=== PATIENT | female | born 1970 | race African-American/Black ===

== ENCOUNTER 2018-11-22 13:56 | Inpatient (IN) ==
[2018-11-22] MEDS ORDERED: ZOFRAN IV ONE (14:37)
[2018-11-22] MEDS ORDERED: MORPHINE IV ONE ×2 (14:37→17:49)
--- NOTE | 2018-11-22 15:09 | PROVIDER DOCUMENTATION ---
HPI-Chest Pain - General Chief Complaint: Breast Pain Stated Complaint: LT BREAST PAIN/TINGLING IN HAND Time Seen by Provider: 11/22/18 14:08 Source: patient Allergies/Adverse Reactions: Patient Allergies Allergy/AdvReac Type Severity Reaction Status Date / Time No Known Allergies Allergy Verified 11/22/18 15:09 Home Medications: Home Medication List Medication Instructions Recorded Confirmed Last Taken Type Esomeprazole [Nexium] 40 mg PO DAILY 05/18/14 11/22/18 05/17/14 History Promethazine [Phenergan] 25 mg PO Q6H PRN PRN #20 tablet 03/09/17 11/22/18 Unknown Rx Clonazepam 2 mg PO BID 06/07/18 11/22/18 Unknown History Erenumab-Aooe [Aimovig 1 dose IM DIRECTED 06/07/18 11/22/18 Unknown History Autoinjector] Hydrocodone/Acetaminophen 1 tab PO BID PRN 06/07/18 11/22/18 Unknown History [Hydrocodone-Acetamin 10-325 mg] Meloxicam 15 mg PO DAILY 06/07/18 11/22/18 Unknown History Norethindrone-E.estradiol-Iron 1 mg PO DAILY 06/07/18 11/22/18 Unknown History [Blisovi 24 Fe Tablet] Tizanidine HCl 4 mg PO BID 06/07/18 11/22/18 Unknown History Rosuvastatin Calcium 1 tab PO DAILY 11/22/18 11/22/18 Unknown History - History of Present Illness-CP Nature of Presenting Problem: Patient is a 48 yobf who complains of pain to right breast area and right side of chest since last night that worsened today. The pain is exacerbated by movement and deep inspiration. She has had some non-productive cough as well. Denies n/v, fever, diaphoresis, or any other complaints. Denies recent chest wall injury. States she is not short of breath but that she is taking shallow breaths due to pain with inspiration. She is non-toxic in appearance. Review of Systems - Adult - REVIEW OF SYSTEMS - ADULT Constitutional: reports: no symptoms reported. denies: chills, fever Eyes: reports: no symptoms reported Ears, Nose, Mouth & Throat: reports: no symptoms reported Cardiovascular: reports: see HPI, chest pain. denies: edema, orthopnea, palpitations, PND, syncope Respiratory: reports: see HPI. denies: excessive sputum production, hemoptysis, wheezing Gastrointestinal: reports: no symptoms reported. denies: nausea, vomiting Genitourinary: reports: no symptoms reported Musculoskeletal: reports: no symptoms reported Integumentary: reports: no symptoms reported Neurological: reports: no symptoms reported Psychiatric: reports: no symptoms reported Endocrine: reports: no symptoms reported Hematologic/Lymphatic: reports: no symptoms reported Allergic/Immunologic: reports: no symptoms reported All Other Systems: Reviewed and Negative Past History - Adult - PAST MEDICAL HISTORY-ADULT Review of Records: reports: Nursing Assessment Review, Medications Reviewed, Social history reviewed & non-contributory. Major Childhood Illnesses: reports: denies history Cardiovascular: reports: hyperlipidemia Respiratory: reports: denies history Gastrointestinal: reports: denies history Obstetrical/Gynecological: reports: denies history Genitourinary: reports: denies history Musculoskeletal: reports: chronic pain, fibromyalgia Neurological: reports: headaches/migraines Psychiatric: reports: depression Endocrine/Immune: reports: denies history Other Conditions: reports: denies history - PRIOR SURGERIES/PROCEDURES Surgical/Procedure History: reports: , hernia repair - IMMUNIZATION STATUS Childhood Immunizations: See Nurse Assessment Flu Vaccine: See Nurse Assessment - FAMILY HISTORY Family History: reviewed, not pertinent, HTN, other (father and sister: DM, HTN.) - SOCIAL HISTORY Smoking: non-smoker Physical Exam-General - PHYSICAL EXAM-ADULT Initial Vital Signs Reviewed: Yes - CONSTITUTIONAL General Appearance: alert, mild distress. negative: lethargic, slow to respond - EYES Eyes: PERRL/EOMI, pink conjunctivae - HEAD, EARS, NOSE, MOUTH & THROAT HENMT: normocephalic/atraumatic, moist mucous membranes, normal ENT inspection, pharynx normal - NECK Neck: full range of motion, supple, normal inspection - RESPIRATORY Respiratory: lungs clear, normal breath sounds, no respiratory distress, no accessory muscle use, splinting (right breast area), other (right chest wall and rib region tender to palpation). negative: crackles, stridor, wheezing, crepitus - CARDIOVASCULAR Cardiovascular: normal peripheral pulses, regular rate, rhythm, no edema, no gallop, no JVD, no murmur - GASTROINTESTINAL (ABDOMEN) Abdominal Exam: normal bowel sounds, non tender, soft - MUSCULOSKELETAL Back Exam: normal inspection Extremity: normal range of motion, non-tender, normal inspection - SKIN Integumentary: normal color, warm/dry. negative: cyanosis, diaphoresis, jaundice, mottled, pallor - NEUROLOGIC Neurologic: grossly normal, no motor/sensory deficits - PSYCHIATRIC Psych/Mental Status: normal mood/affect, normal thought content, normal thought process, oriented x 3 - HEART Score HEART Score: History: Slightly Suspicious HEART Score: ECG: Normal HEART Score: Age: 45-65 Years HEART Score: Risk Factors for Atherosclerotic Disease: 1 or 2 Risk Factors HEART Score: Troponin: < or = Normal Limit Total HEART Score:: 2 Progress - PLAN OF CARE/RESULTS Progress/Plan/Lab Results: Vital Signs - 8 hr 11/22/18 14:01 11/22/18 16:03 Temperature 98.5 F Pulse Rate 98 H 85 Respiratory Rate 18 22 Blood Pressure 110/65 133/83 O2 Sat by Pulse Oximetry 96 96 Bedside Urine ED: Urine Bedside Start: 11/22/18 14:39 Freq: ORDERED Status: Active Protocol: Activity Type Activity Date Activity User E-Sign Co-Sign Detail Recorded Client Recorded Date Recorded By Document 11/22/18 15:00 [id number] 11/22/18 15:00 [id number] 11/22/18 15:00 Point of Care [Bedside Point of Care] -Lot # [id number] - Results Negative -Control Line Visible? Yes Laboratory Results - last 24 hr 11/22/18 11/22/18 11/22/18 14:45 14:45 14:45 WBC 12.86 H RBC 4.34 Hgb 13.1 Hct 40.4 MCV 93.1 MCH 30.2 MCHC 32.4 L RDW Std Deviation 13.3 Plt Count 290 MPV 10.5 H Immature Gran % (Auto) 0.3 Neut % (Auto) 65.6 Lymph % (Auto) 27.1 [place] % (Auto) 5.1 Eos % (Auto) 1.7 Baso % (Auto) 0.2 Immature Gran # (Auto) 0.04 Neut # (Auto) 8.43 H Lymph # (Auto) 3.48 H [place] # (Auto) 0.66 H Eos # (Auto) 0.22 Baso # (Auto) 0.03 PT INR PTT (Actin FS) D-Dimer, Quantitative 1.00 H Sodium Potassium Chloride Carbon Dioxide Anion Gap BUN Creatinine Estimated GFR/1.73 m2 BUN/Creatinine Ratio Glucose Calculated Osmolality Calcium Magnesium Total Bilirubin AST ALT Alkaline Phosphatase Troponin T < 0.010 Une-U-Kyvhawyowei Pept Total Protein Albumin Globulin Albumin/Globulin Ratio 11/22/18 11/22/18 11/22/18 14:45 14:45 14:45 WBC RBC Hgb Hct MCV MCH MCHC RDW Std Deviation Plt Count MPV Immature Gran % (Auto) Neut % (Auto) Lymph % (Auto) [place] % (Auto) Eos % (Auto) Baso % (Auto) Immature Gran # (Auto) Neut # (Auto) Lymph # (Auto) [place] # (Auto) Eos # (Auto) Baso # (Auto) PT 13.1 INR 0.94 PTT (Actin FS) 28.1 D-Dimer, Quantitative Sodium 138 Potassium 3.6 Chloride 102 Carbon Dioxide 24 L Anion Gap 13 BUN 9 Creatinine 0.8 Estimated GFR/1.73 m2 > 60 BUN/Creatinine Ratio 11 Glucose 138 H Calculated Osmolality 277 Calcium 8.9 Magnesium 1.9 Total Bilirubin 0.50 AST 10 ALT 7 L Alkaline Phosphatase 48 Troponin T Xgr-G-Nzqeiavuopn Pept < 5 L Total Protein 7.9 Albumin 4.4 Globulin 4.0 Albumin/Globulin Ratio 1.0 Orders Category Date Time Status Cardiac Monitoring DIRECTED Care 11/22/18 14:37 Active ED: Urine Bedside ORDERED Care 11/22/18 14:39 Active Saline Loc NOW Care 11/22/18 14:37 Active CHEST-2 VIEWS [RAD] Stat Exams 11/22/18 14:[address] ANGIOGRM PULMONARY ARTERIES [CT] Stat Exams 11/22/18 15:52 Taken CBC WITH DIFF [HEME] Stat Lab 11/22/18 14:45 Completed COMPREHENSIVE METABOLIC PANEL [CHEM] Stat Lab 11/22/18 14:45 Completed D-DIMER [COAG] Stat Lab 11/22/18 14:45 Completed MAGNESIUM [CHEM] Stat Lab 11/22/18 14:45 Completed PRO B-NATRIURETIC PEPTIDE Stat Lab 11/22/18 14:45 Completed PROTIME WITH INR [COAG] Stat Lab 11/22/18 14:45 Completed PTT [COAG] Stat Lab 11/22/18 14:45 Completed TROPONIN T Stat Lab 11/22/18 14:45 Completed 0.9% Sodium Chloride Inj [Ns] 500 ml Med 11/22/18 15:52 Discontinued IV 999 mls/hr Acetaminophen [Tylenol] Med 11/22/18 16:08 Discontinued 650 mg PO NOW ONE Morphine Med 11/22/18 14:37 Discontinued 4 mg IV NOW ONE Ondansetron [Zofran] Med 11/22/18 14:37 Discontinued 4 mg IV NOW ONE EKG [EKG] Stat Ther 11/22/18 14:37 Ordered Result Diagrams: 11/22/18 14:45 11/22/18 14:45 - REASSESSMENT Reassessment #1 Time Reassessed: 17:03 Status: other (Spoke with Dr. Camacho who called report for CTA- md states several pulmonary emboli noted in right lung.) - EKG 1 Time of EKG reading by physician:: 14:40 EKG Read and Signed by:: Janett Jacinto EKG Interpretation (*Must complete 3 of following elements*): Normal Rate: 89 Rhythm: SR QRS: normal ST Wave: normal - XRAY 1 XRAY Study: Chest ([facility] - [address] [facility] [address] [address] [facility] - [address] [place] [address] Department of Imaging Patient: ALISSA GRANDEADM Date: 11/22/18#: [id number] : 1970ADM Status: REG [facility]#: [id number] Age/Sex: 48/FRoom/Bed: Loc: P.ED Ordering Physician: Alvina Cotton Family Physician: Stefan Guy DO Reason for Procedure: cp- right chest Signed CHEST-2 VIEWS - 11/22/2018 INDICATION: cp- right chest COMPARISON: 05/18/2014 FINDINGS: There is some trace atelectasis in the lateral costophrenic angles bilaterally. No significant infiltrates. Heart size and pulmonary vascularity is normal. No pneumothorax or pleural effusion. IMPRESSION: Trace hazy atelectasis in the costophrenic angles. Electronically signed by Steve Galan 11/22/2018 4:17 PM 11/22/18 1617 Interpreting Physician: Steve Galan MD Dictated Date/Time: 11/22/18 1616 cc: Giovana Cotton; Stefan Guy DO) - CONSULTS/PCP/HOSPITALIST Notification #1 *Consult/PCP/Hospitalist*: Dr Roe Time Discussed: 17:28 Reason/Comments: PE Consult Disposition: Admit - CHANGE OF SHIFT REPORT (ED Provider) 1 Report Given and Care Transferred to:: JABARI Chan Time of Transfer: 16:58 Items Pending: CT/MRI Results Departure - Departure Date of Disposition Decision: 11/22/18 Time of Disposition Decision: 17:28 DIAGNOSIS: Pulmonary embolism Qualifiers: Pulmonary embolism type: other Chronicity: acute Disposition: ADMITTED INPATIENT 09 Certified Medical Emergency: Emergent Condition: Critical Additional Freetext Instructions: ED Follow Up Instructions: You have been treated by a care provider in the Emergency Department. These instructions are being provided to you so you can have an understanding of how to care for yourself upon discharge. Upon discharge from the Emergency Department, you are responsible for making arrangements for follow-up care by a physician of your choice. Take all prescribed medications as directed. Return to the Emergency Department immediately for any new or worsening symptoms. You may call the Physician Referral phone number at [phone] to obtain a list of Physicians who are taking new patients. Referrals and Follow-Ups: Stefan Guy DO [Primary Care Provider] - - Critical Care Note This patient required my direct & personal management of CC.: No Attestation - Physician/ ALPHONSE Attestation Patient care was provided by Advanced Practice Provider:: Yes Advanced Practice Provider:: Giovana Cotton Advanced Practice Provider documentation review:: The Mid-level provider documentation, treatment plan and medical decision making was reviewed by the physician who agrees with all treatment and medical decision making by the [facility]. The physician spent face to face time with patient:: No Advanced Practice Provider documentation review:: Supervising physician onsite and consulted in the evaluation and care of this patient. The physician did not have a face to face encounter with the patient.
[2018-11-22 15:13] LABS: BASO# 0.03 X1000 (0.0-0.2); BASO% 0.2 % (0.0-0.8); EOS# 0.22 X1000 (0.0-0.7); EOS% 1.7 % (0.0-10.0); HEMATOCRIT 40.4 % (37.0-47.0); HEMOGLOBIN 13.1 g/dL (12.0-16.0); IMM GRAN# 0.04 X1000 (0.0-0.04); IMM GRAN% 0.3 % (0.0-0.5); LYMPH# 3.48 X1000 (1.2-3.4); LYMPH% 27.1 % (20.5-51.1); MCH 30.2 PG (27-31); MCHC 32.4 g/dL (33-37); MCV 93.1 FL (81-99); MONO# 0.66 X1000 (0.11-0.59); MONO% 5.1 % (1.7-9.3); MPV 10.5 FL (7.4-10.4); NEUT# 8.43 X1000 (1.4-6.5); NEUT% 65.6 % (42.2-75.2); PLT 290 X1000 (130-400); RBC 4.34 XMIL (4.2-5.4); RDW 13.3 % (11.5-14.5); WBC 12.86 X1000 (4.8-10.8)
[2018-11-22 15:30] LABS: AGAP 13; ALBUMIN 4.4 g/dL (3.5-5.0); ALKALINE PHOSPHATASE 48 U/L (32-104); BUN 9 mg/dL (8-22); CALCIUM 8.9 mg/dL (8.8-10.2); CHLORIDE 102 mmol/L (98-107); COSMO 277; CREATININE 0.8 mg/dL (0.5-0.9); ESTIMATED GFR > 60; GLUCOSE 138 mg/dL (70-104); GOT 10 U/L (10-30); GPT 7 U/L (10-36); MAGNESIUM 1.9 mg/dL (1.5-2.7); POTASSIUM 3.6 mmol/L (3.5-5.1); SODIUM 138 mmol/L (136-145); TCO2 24 mmol/L (25-35); TOTAL PROTEIN 7.9 g/dL (6.3-8.3)
[2018-11-22] MEDS ORDERED: NS 500 ML IV ONE (15:52)
[2018-11-22] MEDS ORDERED: TYLENOL PO ONE (16:08)
--- NOTE | 2018-11-22 16:19 | Diag Imaging Result Doc PS360 ---
CHEST-2 VIEWS - 11/22/2018 INDICATION: cp- right chest COMPARISON: 05/18/2014 FINDINGS: There is some trace atelectasis in the lateral costophrenic angles bilaterally. No significant infiltrates. Heart size and pulmonary vascularity is normal. No pneumothorax or pleural effusion. IMPRESSION: Trace hazy atelectasis in the costophrenic angles. Electronically signed by Steve Galan 11/22/2018 4:17 PM
[2018-11-22 16:20] LABS: INR 0.94; PROTIME 13.1 Seconds (11.0-16.0)
[2018-11-22 16:21] LABS: PTT 28.1 Seconds (22.3-41.8)
[2018-11-22] MEDS ORDERED: LOVENOX SUBQ ONE (17:03)
--- NOTE | 2018-11-22 17:05 | Diag Imaging Result Doc PS360 ---
CT ANGIOGRM PULMONARY ARTERIES - 11/22/2018 INDICATION: right chest pain, elevated d-dimer TECHNIQUE: Axial CT images were obtained after administering intravenous contrast. Coronal MIP images were generated. COMPARISON: None FINDINGS: There are a couple of pulmonary emboli in the segmental arteries of the right middle and lower lobes. Heart size is normal with no pericardial effusion. There are several left renal cysts. Otherwise upper abdomen appears normal. There is some mild hazy atelectasis in the lung bases. Otherwise no infiltrates. Airways are clear. Bony structures are intact. IMPRESSION: Multiple segmental pulmonary artery emboli mainly in the right lung. This report was discussed with Kavita Cotton on 11/22/2018 at 5:00 PM and was readback. This exam was performed using automated exposure control, adjustment of mA or kV according to patient size, and/or use of iterative reconstruction technique Electronically signed by Steve Galan 11/22/2018 5:02 PM
--- NOTE | 2018-11-22 17:14 | EKG Report ---
Test Performed on : 11/22/2018 2:38:03 PM Test Reason : cp Blood Pressure : / mmHG Vent. Rate : 089 BPM Atrial Rate : 089 BPM P-R Int : 140 ms QRS Dur : 072 ms QT Int : 336 ms P-R-T Axes : 032 001 007 degrees QTc Int : 408 ms Normal sinus rhythm. Normal ECG When compared with ECG of 07-JUN-2018 11:31, No significant change was found Unconfirmed Result
[2018-11-22] MEDS ORDERED: ZOFRAN IV PRN (20:50)
[2018-11-22] MEDS ORDERED: KLONOPIN PO SCH (21:00)
[2018-11-22] MEDS: LOVENOX SUBQ SCH (21:42)
[2018-11-22] MEDS: NS 1,000 ML IV SCH (21:43)
[2018-11-22] MEDS: MORPHINE IV PRN (21:43)
[2018-11-23] MEDS: MORPHINE IV PRN ×3 (01:39→20:57)
[2018-11-23] MEDS: NS 1,000 ML IV SCH (06:24)
[2018-11-23] MEDS: PRILOSEC PO SCH (06:24)
[2018-11-23 06:40] LABS: BASO# 0.02 X1000 (0.0-0.2); BASO% 0.2 % (0.0-0.8); EOS# 0.21 X1000 (0.0-0.7); EOS% 1.8 % (0.0-10.0); HEMATOCRIT 37.7 % (37.0-47.0); HEMOGLOBIN 11.8 g/dL (12.0-16.0); IMM GRAN# 0.03 X1000 (0.0-0.04); IMM GRAN% 0.3 % (0.0-0.5); LYMPH# 3.64 X1000 (1.2-3.4); MCH 29.7 PG (27-31); MCHC 31.3 g/dL (33-37); MONO# 0.98 X1000 (0.11-0.59); MONO% 8.6 % (1.7-9.3); MPV 10.2 FL (7.4-10.4); NEUT# 6.51 X1000 (1.4-6.5); NEUT% 57.1 % (42.2-75.2); PLT 283 X1000 (130-400); RBC 3.97 XMIL (4.2-5.4); RDW 13.5 % (11.5-14.5); WBC 11.39 X1000 (4.8-10.8)
[2018-11-23 06:58] LABS: AGAP 8; BUN 8 mg/dL (8-22); CALCIUM 8.1 mg/dL (8.8-10.2); CHLORIDE 108 mmol/L (98-107); COSMO 280; CREATININE 0.8 mg/dL (0.5-0.9); ESTIMATED GFR > 60; GLUCOSE 105 mg/dL (70-104); POTASSIUM 3.8 mmol/L (3.5-5.1); SODIUM 141 mmol/L (136-145); TCO2 25 mmol/L (25-35)
[2018-11-23] MEDS: TYLENOL PO PRN (08:10)
[2018-11-23] MEDS: KLONOPIN PO SCH ×2 (08:10→20:58)
[2018-11-23] MEDS: LOVENOX SUBQ SCH ×2 (08:11→20:57)
--- NOTE | 2018-11-23 09:06 | HISTORY AND PHYSICAL ---
PRIMARY CARE PHYSICIAN: Dr. Stefan Guy. CHIEF COMPLAINT: Pain over the right side of her breast and chest that began Friday night, worse with movement and deep inspiration, and these symptoms progressively worsened. HISTORY OF PRESENTING ILLNESS: This is a 48-year-old, female who presents to [facility] ER with complaints of pain over her right breast and chest wall that began Friday night and progressively worsened. States the pain is worse with movement and deep inspiration. She had also had a nonproductive cough. Denies any recent chest wall injury. Denied being short of breath but states that she is taking shallow breaths due to the pain with inspiration. Her laboratory data showed a D-dimer of 1.00. We did a pulmonary arteriogram that showed multiple segmental pulmonary artery emboli, mainly in the right lung, so she was admitted for further evaluation and treatment. PAST MEDICAL HISTORY: Hyperlipidemia, chronic pain, fibromyalgia, headache, and depression. PAST SURGICAL HISTORY: section and hernia repair. FAMILY HISTORY: Father and sister both had diabetes and hypertension. SOCIAL HISTORY: She currently lives with family. Denies any tobacco, alcohol, or illicit drug use. ALLERGIES: She has no known drug allergies. HOME MEDICATIONS: We will hold Aimovig IM as directed, hydrocodone 10 one p.o. b.i.d. p.r.n., meloxicam 15 mg p.o. daily, Blisovi 24 iron tablet 1 mg p.o. daily, Phenergan 25 mg p.o. q.6 hours p.r.n., tizanidine 4 mg p.o. b.i.d. We will continue her clonazepam 2 mg p.o. b.i.d., Nexium 40 mg p.o. daily, and rosuvastatin 40 mg p.o. daily. LABORATORY DATA: Showed a white blood cell count of 12.86, hemoglobin 13.1, hematocrit 40.4, platelets 290,000. PT and INR of 13.1 and 0.94, with a D-dimer of 1. Sodium 138, potassium 3.6, chloride 102, CO2 of 24, BUN of 9, creatinine 0.8, glucose 138, magnesium 1.9. Troponin less than 0.010. ProBNP less than 5. Chest x-ray showed trace hazy atelectasis in the costophrenic angles. EKG showed normal sinus rhythm at 89. Pulmonary arteriogram showed multiple segmental pulmonary artery emboli, mainly in the right lung. REVIEW OF SYSTEMS: She denied any fever, chills, blurred vision, dizziness. She had right-sided chest pain, chest wall pain, and right breast pain, a nonproductive cough. Denied shortness of breath. Denied any abdominal pain, constipation, diarrhea, burning or hurting with urination. PHYSICAL EXAMINATION: VITAL SIGNS: On arrival, she had a temperature of 98.5 degrees, pulse 98, respirations 18, blood pressure 110/65, saturating 96% on room air. GENERAL: This is a 48-year-old, female who is lying in the bed and answers questions appropriately. HEENT: Normocephalic, atraumatic. Normal ENT inspection. Oropharynx and nares are clear. Eyes: Pupils are equal, round, and reactive to light and accommodation. Extraocular movements are intact. NECK: Normal inspection. Normal range of motion. LUNGS: Clear to auscultation bilaterally, with equal lung expansion and chest wall movement. HEART: Regular rate and rhythm. No murmurs, rubs, or gallops. ABDOMEN: Soft, nontender, nondistended. Bowel sounds are present x4 quadrants. MUSCULOSKELETAL: She has 5/5 strength x4 extremities. NEUROLOGICAL: The cranial nerves 2-12 appear grossly intact. ASSESSMENT: 1. Right pulmonary emboli. 2. Elevated D-dimer. 3. Chronic pain. 4. Hyperlipidemia. PLAN: She was admitted to the medical unit, placed on a regular diet. We are going to check a bilateral lower extremity venous Doppler, do her hypercoagulable workup. She was placed on Lovenox 90 mg subcutaneously q.12 hours, normal saline at 100 mL an hour but I believe we can discontinue that at this time. We will attempt to transition her to Xarelto. We will make sure she can afford this medication prior to changing her over. Dictated by JABARI Echeverria for Pancho Rodriguez MD cc: JABARI Echeverria MD [facility], DO [facility]
--- NOTE | 2018-11-23 09:50 | Extremity Venous Study ---
EXAM: Venous U/S Bilateral Legs HISTORY: Pulmonary Embolism TECHNIQUE: Shepherd scale, color Doppler, and duplex evaluation was performed. Standard protocol. COMPARISON: None. FINDINGS: There is a nonocclusive acute thrombus within the right common femoral vein. The remainder of the bilateral deep veins are patent.. The superficial veins appear patent. IMPRESSION: Nonocclusive acute DVT right common femoral vein. No evidence for deep venous thrombosis left lower extremity. Electronically signed by Gloria Cowan 11/23/2018 9:47 AM
[2018-11-23] MEDS: CRESTOR PO SCH ×2 (19:52→20:58)
--- NOTE | 2018-11-24 06:46 | HISTORY AND PHYSICAL ---
ADDENDUM: The patient was seen and examined by myself. Full note was dictated and discussed with nurse practitioner. The patient presented to the hospital with right-sided chest pain. It hurts worse when she breathes or moves. Upon evaluation, she was noted to have pulmonary emboli. It appears we are going to admit her to the hospital. Check an ultrasound of her lower extremities. Place her on Lovenox and hopefully transition to Xarelto or Eliquis. cc: Pancho Rodriguez MD
[2018-11-24] MEDS: LOVENOX SUBQ SCH (09:06)
[2018-11-24] MEDS: PRILOSEC PO SCH (09:07)
[2018-11-24] MEDS: KLONOPIN PO SCH ×2 (09:07→21:42)
[2018-11-24] MEDS: TYLENOL PO PRN (14:06)
--- NOTE | 2018-11-24 17:55 | PROGRESS NOTE ---
DATE: 11/24/2018 SUBJECTIVE: Patient has no major complaints. OBJECTIVE: Vital Signs: Blood pressure is 117/66, heart rate of 70, respiratory rate of 18, temperature 97.7 degrees, 100% on 1 L. Cardiovascular: Regular rate and rhythm. Pulmonary: Bilateral breath sounds, clear to auscultation. Gastrointestinal: Soft, nontender, nondistended. Bowel sounds are positive. DIAGNOSTIC DATA: White count 11, hemoglobin and hematocrit of 11 and 37, platelets 283,000. Basic was normal. PROBLEM LIST: Right PE. These are very small PEs. We will continue anticoagulation. I switched her to Eliquis. I did not see his note here about switching her to Xarelto, but I have assumed care, and they are pretty equivocal. I am just going to do Eliquis. We will get social work to approve the medication. Hypercoagulable workup is in place. We will continue to follow closely. Clinically, I think she is doing okay, and these are very small PEs. We will work on trying to get her up and about. cc: Brent Posada MD
[2018-11-24] MEDS: CRESTOR PO SCH (21:41)
[2018-11-24] MEDS: ELIQUIS PO SCH (21:42)
[2018-11-24] MEDS: MORPHINE IV PRN (21:57)
[2018-11-25] MEDS: PRILOSEC PO SCH ×2 (05:33→06:01)
[2018-11-25 07:44] LABS: BASO# 0.02 X1000 (0.0-0.2); BASO% 0.2 % (0.0-0.8); EOS# 0.24 X1000 (0.0-0.7); EOS% 2.6 % (0.0-10.0); HEMATOCRIT 39.6 % (37.0-47.0); HEMOGLOBIN 12.2 g/dL (12.0-16.0); IMM GRAN# 0.01 X1000 (0.0-0.04); IMM GRAN% 0.1 % (0.0-0.5); LYMPH# 3.39 X1000 (1.2-3.4); LYMPH% 36.3 % (20.5-51.1); MCH 29.5 PG (27-31); MCHC 30.8 g/dL (33-37); MCV 95.7 FL (81-99); MONO# 0.71 X1000 (0.11-0.59); MONO% 7.6 % (1.7-9.3); MPV 10.7 FL (7.4-10.4); NEUT# 4.98 X1000 (1.4-6.5); NEUT% 53.2 % (42.2-75.2); PLT 272 X1000 (130-400); RBC 4.14 XMIL (4.2-5.4); WBC 9.35 X1000 (4.8-10.8)
[2018-11-25] MEDS: ELIQUIS PO SCH ×3 (07:55→20:42)
[2018-11-25] MEDS: KLONOPIN PO SCH ×3 (07:55→20:42)
[2018-11-25 07:58] LABS: AGAP 10; BUN 7 mg/dL (8-22); CALCIUM 8.6 mg/dL (8.8-10.2); CHLORIDE 106 mmol/L (98-107); COSMO 282; CREATININE 0.7 mg/dL (0.5-0.9); ESTIMATED GFR > 60; GLUCOSE 110 mg/dL (70-104); SODIUM 142 mmol/L (136-145); TCO2 26 mmol/L (25-35)
[2018-11-25] MEDS: CRESTOR PO SCH (20:41)
[2018-11-25] MEDS: TYLENOL PO PRN (22:46)
[2018-11-26] MEDS: PRILOSEC PO SCH (06:46)
[2018-11-26] MEDS: MORPHINE IV PRN (06:47)
[2018-11-26 07:48] VITALS: BP 127/74
--- NOTE | 2018-11-26 08:11 | Diag Imaging Result Doc PS360 ---
EXAM: CHEST-2 VIEWS - 11/26/2018 HISTORY: hypoxia TECHNIQUE: Chest two views COMPARISON: 11/22/2018 FINDINGS: Heart size is normal. There is mild elevation of left hemidiaphragm, with mild subsegmental atelectasis at the left base, similar to prior. The lungs otherwise appear clear. There is no pleural effusion or pneumothorax identified. IMPRESSION: Stable mild elevation of left hemidiaphragm with mild subsegmental atelectasis at the left base. No acute changes. Electronically signed by Alhaji Tolbert 11/26/2018 8:08 AM
[2018-11-26] MEDS: KLONOPIN PO SCH (09:30)
[2018-11-26] MEDS: ELIQUIS PO SCH (09:30)
--- NOTE | 2018-11-27 05:08 | DISCHARGE SUMMARY ---
ADMISSION DATE: 11/22/2018 DISCHARGE DATE: 11/26/2018 PRIMARY CARE PHYSICIAN: Dr. Stefan Guy. ADMISSION DIAGNOSES: 1. Right pulmonary emboli. 2. Elevated D-dimer. 3. Chronic pain. 4. Hyperlipidemia. DISCHARGE DIAGNOSES: 1. Right pulmonary emboli and right lower extremity deep venous thrombosis of the common femoral vein. 2. Chronic pain. 3. Hyperlipidemia. SUMMARY OF FINDINGS: This is a 48-year-old female who presented to the ER with complaints of pain over her right breast and chest wall that began Friday night and progressively worsened. The pain was worse with movement and deep inspiration. She also had a nonproductive cough. No chest wall injury recently was noted. Denied being short of breath, but was taking shallow breaths due to pain with inspiration. Her D-dimer was elevated at 1.0 so we did a pulmonary arteriogram that showed multiple segmental pulmonary artery emboli mainly in the right lung. She was admitted and placed on Lovenox 1 mg/kg. We did a lower extremity venous Doppler that did show a nonocclusive acute DVT of the right common femoral vein. No evidence for DVT of the left lower extremity. She has been on Lovenox 1 mg/kg subcu q.12h. On the , we changed her over to Eliquis 10 mg p.o. b.i.d. We have a hypercoagulable workup that is pending at this time, and it is now felt that she can safely be discharged home. DISCHARGE MEDICATIONS: 1. Eliquis starter pack as directed for 1 month, and then she will be on 5 mg p.o. b.i.d. for her maintenance. 2. She will continue her Mobic autoinjector as directed. 3. [place] 10 1 p.o. b.i.d. p.r.n. 4. Meloxicam 15 mg p.o. daily. 5. We will stop her control pill of Blisovi 24 fe tablets. 6. Phenergan 25 mg p.o. q.6 hours p.r.n. 7. Tizanidine 4 mg p.o. b.i.d. FOLLOWUP: She will need to follow up with her primary care physician in the next 1 to 2 weeks. Call their office for an appointment. All discharge instructions have been reviewed with the patient, and she verbalized understanding. Dictated by JABARI Echeverria for Brent Posada MD cc: JABARI Echeverria MD [facility] Lockard, DO
== END 2018-11-26 12:53 | disposition home or self-care (01) | DRG 176 ==
LOC: P.ED 13:56 → P.MEDSURG 20:11 → SUATTDRO 20:11
PROVIDERS: ATTEND Internal Medicine